=== PATIENT | female | born 1995 | race Caucasian/White ===

== ENCOUNTER 2017-09-25 08:23 | Emergency (ER) | payer OTHER ==
[~2017-09-25] VITALS: Ht 162.6 cm; Wt 66.0 kg
[2017-09-25 08:28] VITALS: BP 125/75; PULSE 100; RESP 16; TEMP 98.5; O2SAT 99
[2017-09-25] MEDS ORDERED: KETOROLAC TROMETHAMINE 60 MG/2 ML (IM) VIAL IM ONE (08:45)
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
[2017-09-25 10:30] VITALS: BP 130/78
== END 2017-09-25 10:31 | disposition home or self-care (01) ==
LOC: PHED 08:23
DX: S00.83XA Contusion of other part of head, initial encounter (principal); T76.21XA Adult sexual abuse, suspected, initial encounter
CPT/HCPCS: 70450; 70486; 72125; 84703; 96372; 99285; J1885; L0150

== ENCOUNTER 2017-12-31 05:32 | Emergency (ER) | payer OTHER ==
[~2017-12-31] VITALS: Ht 162.6 cm; Wt 65.0 kg
[2017-12-31 05:42] VITALS: BP 152/71; PULSE 113; RESP 17; TEMP 98.7; O2SAT 98
[2017-12-31] MEDS ORDERED: diphenhydrAMINE HCL 50 MG/ML VIAL ONE (05:51)
[2017-12-31] MEDS ORDERED: LORazepam 2 MG/ML VIAL ONE ×2 (05:51→14:02)
--- NOTE | 2017-12-31 05:58 | PD ---
HPI Chief Complaint: Psychiatric Symptoms Time Seen by Provider: 05:44 Travel History International Travel<30 days: No Contact w/Intl Traveler<30days: No Traveled to known affect area: No History of Present Illness HPI Patient is a 22-year-old female presenting to the emergency department under a [place]ales act for psychiatric evaluation. Patient allegedly made suicidal statements. Patient has been drinking, she states she has had several shots of alcohol this evening. She currently denies any suicidal or homicidal ideations. She does admit to a previous suicide attempt several years ago. She denies any physical complaints at this time. Patient is literally begging for cigarette. Symptom onset appears gradual, worsening over the course of the evening. Likely exacerbated secondary to alcohol intoxication. PFSH Past Medical History Depression: Yes Immunizations Current: Yes Social History Alcohol Use: Yes (socially) Tobacco Use: Yes Substance Use: No (HX OF) Allergies-Medications (Allergen,Severity, Reaction): Coded Allergies: No Known Allergies (Unverified Adverse Reaction, Unknown, 12/31/17) Reported Meds & Prescriptions Reported Meds & Active Scripts Active No Active Prescriptions or Reported Medications Review of Systems Except as stated in HPI: all other systems reviewed are Neg Psychiatric: Positive: Depression, Suicidal Ideations, Substance Abuse Physical Exam Narrative GENERAL: Well-developed, well-nourished, disheveled female. Presenting in no acute distress. Appears intoxicated. SKIN: Warm and dry. HEAD: Atraumatic. Normocephalic. EYES: Pupils equal and round. No scleral icterus. No injection or drainage. ENT: No nasal bleeding or discharge. Mucous membranes pink and moist. NECK: Trachea midline. No JVD. CARDIOVASCULAR: Regular rate and rhythm. RESPIRATORY: No accessory muscle use. Clear to auscultation. Breath sounds equal bilaterally. GASTROINTESTINAL: Abdomen soft, non-tender, nondistended. Hepatic and splenic margins not palpable. MUSCULOSKELETAL: Extremities without clubbing, cyanosis, or edema. No obvious deformities. NEUROLOGICAL: Awake and alert. No obvious cranial nerve deficits. Motor grossly within normal limits. Five out of 5 muscle strength in the arms and legs. Normal speech. PSYCHIATRIC: Appropriate mood and affect; insight and judgment impaired. Data Data Last Documented VS Vital Signs Date Time Temp Pulse Resp B/P (MAP) Pulse Ox O2 Delivery O2 Flow Rate FiO2 12/31/17 05:42 98.7 113 17 152/71 (98) 98 Orders Orders Diphenhydramine Inj (Benadryl Inj) (12/31/17 05:51) Lorazepam Inj (Ativan Inj) (12/31/17 05:51) Lorazepam Inj (Ativan Inj) (12/31/17 06:00) Diphenhydramine Inj (Benadryl Inj) (12/31/17 06:00) Complete Blood Count With Diff (12/31/17 05:53) Comprehensive Metabolic Panel (12/31/17 05:53) Thyroid Stimulating Hormone (12/31/17 05:53) Urinalysis - C+S If Indicated (12/31/17 05:53) Ed Urine Pregnancytest Poc (12/31/17 05:53) Psych Screen (12/31/17 05:53) Drug Screen, Random Urine (12/31/17 05:53) Alcohol (Ethanol) (12/31/17 05:53) Nicotine 14 Mg Patch.24 Hr (Habitrol 14 (12/31/17 06:15) Iv Access Insert/Monitor (12/31/17 06:57) Ns (Bolus) Inj (12/31/17 07:00) Labs Laboratory Tests Test 12/31/17 06:00 12/31/17 06:02 White Blood Count 6.7 TH/MM3 Red Blood Count 4.78 MIL/MM3 Hemoglobin 15.8 GM/DL Hematocrit 45.2 % Mean Corpuscular Volume 94.5 FL Mean Corpuscular Hemoglobin 33.0 PG Mean Corpuscular Hemoglobin Concent 34.9 % Red Cell Distribution Width 12.5 % Platelet Count 284 TH/MM3 Mean Platelet Volume 8.4 FL Neutrophils (%) (Auto) 58.8 % Lymphocytes (%) (Auto) 35.7 % Monocytes (%) (Auto) 4.8 % Eosinophils (%) (Auto) 0.4 % Basophils (%) (Auto) 0.3 % Neutrophils # (Auto) 4.0 TH/MM3 Lymphocytes # (Auto) 2.4 TH/MM3 Monocytes # (Auto) 0.3 TH/MM3 Eosinophils # (Auto) 0.0 TH/MM3 Basophils # (Auto) 0.0 TH/MM3 CBC Comment DIFF FINAL Differential Comment Blood Urea Nitrogen 9 MG/DL Creatinine 0.67 MG/DL Random Glucose 96 MG/DL Total Protein 8.2 GM/DL Albumin 4.7 GM/DL Calcium Level 8.5 MG/DL Alkaline Phosphatase 58 U/L Aspartate Amino Transf (AST/SGOT) 119 U/L Alanine Aminotransferase (ALT/SGPT) 91 U/L Total Bilirubin 0.5 MG/DL Sodium Level 147 MEQ/L Potassium Level MEQ/L Chloride Level 116 MEQ/L Carbon Dioxide Level 25.0 MEQ/L Anion Gap 6 MEQ/L Estimat Glomerular Filtration Rate 109 ML/MIN Thyroid Stimulating Hormone 3rd Gen 1.400 uIU/ML Ethyl Alcohol Level 331 MG/DL Urine Color LIGHT-YELLOW Urine Turbidity CLEAR Urine pH 5.5 Urine Specific [place] 1.009 Urine Protein NEG mg/dL Urine Glucose (UA) NEG mg/dL Urine Ketones NEG mg/dL Urine Occult Blood NEG Urine Nitrite NEG Urine Bilirubin NEG Urine Urobilinogen LESS THAN 2.0 MG/DL Urine Leukocyte Esterase NEG Urine RBC 1 /hpf Urine WBC 2 /hpf Urine Squamous Epithelial Cells 3 /hpf Microscopic Urinalysis Comment CULT NOT INDICATED Urine Opiates Screen NEG Urine Barbiturates Screen NEG Urine Amphetamines Screen NEG Urine Benzodiazepines Screen NEG Urine Cocaine Screen NEG Urine Cannabinoids Screen POS MDM Medical Decision Making Medical Screen Exam Complete: Yes Emergency Medical Condition: Yes Interpretation(s) Laboratory Tests Test 12/31/17 06:00 12/31/17 06:02 White Blood Count 6.7 TH/MM3 Red Blood Count 4.78 MIL/MM3 Hemoglobin 15.8 GM/DL Hematocrit 45.2 % Mean Corpuscular Volume 94.5 FL Mean Corpuscular Hemoglobin 33.0 PG Mean Corpuscular Hemoglobin Concent 34.9 % Red Cell Distribution Width 12.5 % Platelet Count 284 TH/MM3 Mean Platelet Volume 8.4 FL Neutrophils (%) (Auto) 58.8 % Lymphocytes (%) (Auto) 35.7 % Monocytes (%) (Auto) 4.8 % Eosinophils (%) (Auto) 0.4 % Basophils (%) (Auto) 0.3 % Neutrophils # (Auto) 4.0 TH/MM3 Lymphocytes # (Auto) 2.4 TH/MM3 Monocytes # (Auto) 0.3 TH/MM3 Eosinophils # (Auto) 0.0 TH/MM3 Basophils # (Auto) 0.0 TH/MM3 CBC Comment DIFF FINAL Differential Comment Blood Urea Nitrogen 9 MG/DL Creatinine 0.67 MG/DL Random Glucose 96 MG/DL Total Protein 8.2 GM/DL Albumin 4.7 GM/DL Calcium Level 8.5 MG/DL Alkaline Phosphatase 58 U/L Aspartate Amino Transf (AST/SGOT) 119 U/L Alanine Aminotransferase (ALT/SGPT) 91 U/L Total Bilirubin 0.5 MG/DL Sodium Level 147 MEQ/L Potassium Level MEQ/L Chloride Level 116 MEQ/L Carbon Dioxide Level 25.0 MEQ/L Anion Gap 6 MEQ/L Estimat Glomerular Filtration Rate 109 ML/MIN Thyroid Stimulating Hormone 3rd Gen 1.400 uIU/ML Ethyl Alcohol Level 331 MG/DL Urine Color LIGHT-YELLOW Urine Turbidity CLEAR Urine pH 5.5 Urine Specific [place] 1.009 Urine Protein NEG mg/dL Urine Glucose (UA) NEG mg/dL Urine Ketones NEG mg/dL Urine Occult Blood NEG Urine Nitrite NEG Urine Bilirubin NEG Urine Urobilinogen LESS THAN 2.0 MG/DL Urine Leukocyte Esterase NEG Urine RBC 1 /hpf Urine WBC 2 /hpf Urine Squamous Epithelial Cells 3 /hpf Microscopic Urinalysis Comment CULT NOT INDICATED Urine Opiates Screen NEG Urine Barbiturates Screen NEG Urine Amphetamines Screen NEG Urine Benzodiazepines Screen NEG Urine Cocaine Screen NEG Urine Cannabinoids Screen POS Vital Signs Date Time Temp Pulse Resp B/P (MAP) Pulse Ox O2 Delivery O2 Flow Rate FiO2 12/31/17 05:42 98.7 113 17 152/71 (98) 98 Differential Diagnosis Substance induced mood disorder versus suicidal ideations versus depression versus intoxication versus other Narrative Course Patient is a 22-year-old female that presented to the emergency department under Canales act for psychiatric evaluation. Patient was agitated on arrival, repeatedly requesting to go outside and have a cigarette before her Canales act started. Patient denies any suicidality. She does admit to previous suicide attempt. Mental health screening discussed with the patient. Psychiatric screen ordered. Patient was given 1 mg of Ativan and 25 mg of Benadryl IM 1 dose. IV access established, IV fluids ordered. CBC with no acute findings chemistry the sodium of 147 otherwise unremarkable Urine drug screen is positive for marijuana, alcohol level is 331, urinalysis unremarkable. Patient is medically clear for psychiatric evaluation at this time. Diagnosis Primary Impression: Medical clearance for psychiatric admission Scripts No Active Prescriptions or Reported Meds Condition: Stable Noni Haq Dec 31, 2017 05:57
[2017-12-31] MEDS ORDERED: LORazepam 2 MG/ML VIAL IM ONE ×2 (06:00→15:15)
[2017-12-31] MEDS ORDERED: diphenhydrAMINE HCL 50 MG/ML VIAL IM ONE (06:00)
[2017-12-31] MEDS ORDERED: NICOTINE 14 MG/24 HR PATCH T-DERMAL ONE (06:15)
[2017-12-31 06:18] LABS: BASOPHIL % 0.3 % (0.0-2.0); EOSINOPHIL % 0.4 % (0.0-4.0); HEMATOCRIT 45.2 % (35.0-46.0); HEMOGLOBIN 15.8 GM/DL (11.6-15.3); LYMPH % 35.7 % (9.0-44.0); LYMPHOCYTE # 2.4 TH/MM3 (1.0-4.8); MEAN CELL VOLUME 94.5 FL (80.0-100.0); MEAN CORPUSCULAR HGB CONC 34.9 % (32.0-36.0); MEAN PLATELET VOLUME 8.4 FL (7.0-11.0); MONO % 4.8 % (0.0-8.0); MONOCYTE # 0.3 TH/MM3 (0-0.9); NEUT % 58.8 % (16.0-70.0); PLATELET COUNT 284 TH/MM3 (150-450); RED BLOOD COUNT 4.78 MIL/MM3 (4.00-5.30); RED CELL DISTRIBUTION WIDTH 12.5 % (11.6-17.2); WHITE BLOOD COUNT 6.7 TH/MM3 (4.0-11.0)
[2017-12-31 06:40] LABS: BILIRUBIN, URINE NEG (NEG); BLOOD, URINE NEG (NEG); GLUCOSE,URINE NEG (NEG); KETONE, URINE NEG (NEG); NITRITE,URINE NEG (NEG); PH, URINE 5.5 (5.0-8.5); SQUAMOUS EPITHELIAL CELL URINE 3 /hpf (0-5); URINE COLOR LIGHT-YELLOW (YELLW/STRAW); URINE LEUKOCYTE ESTERASE NEG (NEG)
[2017-12-31 06:48] LABS: ALBUMIN 4.7 GM/DL (3.4-5.0); ALT (GPT) 91 U/L (10-53); AST (GOT) 119 U/L (15-37); BLOOD UREA NITROGEN 9 MG/DL (7-18); CALCIUM 8.5 MG/DL (8.5-10.1); CHLORIDE 116 MEQ/L (98-107); CREATININE 0.67 MG/DL (0.50-1.00); GLOMERULAR FILTRATION RATE 109 ML/MIN (>89); GLUCOSE,RANDOM 96 MG/DL (74-106); SODIUM (NA) 147 MEQ/L (136-145)
[2017-12-31 06:52] LABS: ALKALINE PHOSPHATASE 58 U/L (45-117); TOTAL BILIRUBIN ADULT 0.5 MG/DL (0.2-1.0); TOTAL PROTEIN 8.2 GM/DL (6.4-8.2)
[2017-12-31] MEDS ORDERED: SODIUM CHLOR 0.9% 1000 ML INJ 1,000 ML IV ONE (07:00)
[2017-12-31 09:02] VITALS: BP 100/64; PULSE 76; RESP 17; O2SAT 98
[2017-12-31 12:35] VITALS: BP 109/83; PULSE 87; RESP 22; TEMP 98.4; O2SAT 98
--- NOTE | 2017-12-31 16:33 | PD ---
Data Data Last Documented VS Vital Signs Date Time Temp Pulse Resp B/P (MAP) Pulse Ox O2 Delivery O2 Flow Rate FiO2 12/31/17 12:35 98.4 87 22 109/83 (92) 98 Room Air Orders Orders Diphenhydramine Inj (Benadryl Inj) (12/31/17 05:51) Lorazepam Inj (Ativan Inj) (12/31/17 05:51) Lorazepam Inj (Ativan Inj) (12/31/17 06:00) Diphenhydramine Inj (Benadryl Inj) (12/31/17 06:00) Complete Blood Count With Diff (12/31/17 05:53) Comprehensive Metabolic Panel (12/31/17 05:53) Thyroid Stimulating Hormone (12/31/17 05:53) Urinalysis - C+S If Indicated (12/31/17 05:53) Ed Urine Pregnancytest Poc (12/31/17 05:53) Psych Screen (12/31/17 05:53) Drug Screen, Random Urine (12/31/17 05:53) Alcohol (Ethanol) (12/31/17 05:53) Nicotine 14 Mg Patch.24 Hr (Habitrol 14 (12/31/17 06:15) Iv Access Insert/Monitor (12/31/17 06:57) Sodium Chlor 0.9% 1000 Ml Inj (Ns 1000 M (12/31/17 07:00) Diet Regular Basic (12/31/17 Lunch) Restraints Violent (12/31/17 12:51) Restraints Violent (12/31/17 13:57) Lorazepam Inj (Ativan Inj) (12/31/17 14:02) Lorazepam Inj (Ativan Inj) (12/31/17 15:15) Diet Regular Basic (12/31/17 Dinner) Ed Discharge Order (12/31/17 16:32) Labs Laboratory Tests Test 12/31/17 06:00 12/31/17 06:02 White Blood Count 6.7 TH/MM3 Red Blood Count 4.78 MIL/MM3 Hemoglobin 15.8 GM/DL Hematocrit 45.2 % Mean Corpuscular Volume 94.5 FL Mean Corpuscular Hemoglobin 33.0 PG Mean Corpuscular Hemoglobin Concent 34.9 % Red Cell Distribution Width 12.5 % Platelet Count 284 TH/MM3 Mean Platelet Volume 8.4 FL Neutrophils (%) (Auto) 58.8 % Lymphocytes (%) (Auto) 35.7 % Monocytes (%) (Auto) 4.8 % Eosinophils (%) (Auto) 0.4 % Basophils (%) (Auto) 0.3 % Neutrophils # (Auto) 4.0 TH/MM3 Lymphocytes # (Auto) 2.4 TH/MM3 Monocytes # (Auto) 0.3 TH/MM3 Eosinophils # (Auto) 0.0 TH/MM3 Basophils # (Auto) 0.0 TH/MM3 CBC Comment DIFF FINAL Differential Comment Blood Urea Nitrogen 9 MG/DL Creatinine 0.67 MG/DL Random Glucose 96 MG/DL Total Protein 8.2 GM/DL Albumin 4.7 GM/DL Calcium Level 8.5 MG/DL Alkaline Phosphatase 58 U/L Aspartate Amino Transf (AST/SGOT) 119 U/L Alanine Aminotransferase (ALT/SGPT) 91 U/L Total Bilirubin 0.5 MG/DL Sodium Level 147 MEQ/L Potassium Level MEQ/L Chloride Level 116 MEQ/L Carbon Dioxide Level 25.0 MEQ/L Anion Gap 6 MEQ/L Estimat Glomerular Filtration Rate 109 ML/MIN Thyroid Stimulating Hormone 3rd Gen 1.400 uIU/ML Ethyl Alcohol Level 331 MG/DL Urine Color LIGHT-YELLOW Urine Turbidity CLEAR Urine pH 5.5 Urine Specific [place] 1.009 Urine Protein NEG mg/dL Urine Glucose (UA) NEG mg/dL Urine Ketones NEG mg/dL Urine Occult Blood NEG Urine Nitrite NEG Urine Bilirubin NEG Urine Urobilinogen LESS THAN 2.0 MG/DL Urine Leukocyte Esterase NEG Urine RBC 1 /hpf Urine WBC 2 /hpf Urine Squamous Epithelial Cells 3 /hpf Microscopic Urinalysis Comment CULT NOT INDICATED Urine Opiates Screen NEG Urine Barbiturates Screen NEG Urine Amphetamines Screen NEG Urine Benzodiazepines Screen NEG Urine Cocaine Screen NEG Urine Cannabinoids Screen POS MDM Medical Record Reviewed: Yes Supervised Visit with DILEEP: No Narrative Course Please see previous provider's notes. This patient Canales act has been lifted by psychiatry. The patient expresses remorse for the statements that she made while she was intoxicated. She is now sober, coherent, safe for discharge with no additional medical issues that would warrant further hospitalization. Diagnosis Primary Impression: Medical clearance for psychiatric admission Scripts No Active Prescriptions or Reported Meds Condition: Stable Dalton Chavarria Dec 31, 2017 16:33
--- NOTE | 2017-12-31 16:40 | PD ---
History of Present Illness Chief Complaint: Psychiatric Symptoms Time Seen by Provider: 16:00 Travel History International Travel<30 Days: No Contact w/Intl Traveler<30days: No Known affected area: No Legal Status Legal Status: Canales Act Canales Act Signed By: Hazel Rosa History of Present Illness: History of Present Illness HPI Patient is a 22-year-old female with no psychiatric history presenting to the emergency department under a Canales act for psychiatric evaluation. The Canales act report alleges that the patient made suicidal statements while intoxicated. The patient admits to having had several shots of alcohol and later not remembering what had happened or how she got here to the hospital. Her blood alcohol level on arrival was 331. Toxicology was positive for cannabinoids. Electronic medical record is reviewed. No previous contact with [facility] psychiatry Department. Patient arrived to [facility] and she was still intoxicated. She was threatening to leave, threatening to punch staff and demanding to have a cigarette. The patient required locked seclusion in order to prevent harm to staff. She also required ETO of Ativan as she was banging on the door and continuing to threaten to harm staff. She then fell asleep. The patient is seen for this evaluation. She is clinically sober. Ambulating well without any gait disturbance. Her speech is clear, logical, goal- directed. She is apologetic for her behavior and remorseful as well. She admits to being intoxicated and not remembering what happened or what she said while she was intoxicated. She denies any suicidal or homicidal ideation, intent or plan. She is future oriented. She states that she has many good things happening in her life quitting her job as well as getting a new truck soon. The patient denies any psychiatric history. She does not present any evidence of any unstable mental illness. No psychosis and no michael. PFSH Past Medical History Depression: Yes Immunizations Current: Yes Psychiatric History Psychiatric History Hx Psychiatric Treatment: Denies any. She does report one previous Canales act while she was under the influence of alcohol as well. History of Inpatient Treatment: No Guns or firearms in home: No Social History Single female who lives with her boyfriend. She is employed at a local restaurant as a server programmer. Hx Alcohol Use: Yes (socially) Hx Tobacco Use: Yes Hx Substance Use: No (HX OF) Substance Use Type: Alcohol, Marijuana Other Substances Used: reports that she drinks once a week on her day off. Hx of Substance Use Treatment: No Family Psychiatric History Negative Allergies-Medications (Allergen,Severity, Reaction): Coded Allergies: No Known Allergies (Unverified Allergy, Unknown, 12/31/17) Reported Meds & Prescriptions Reported Meds & Active Scripts Active No Active Prescriptions or Reported Medications Review of Systems Psychiatric: DENIES: Anxiety, Confusion, Mood changes, Depression, Hallucinations, Agitation, Suicidal Ideation, Homicidal Ideation, Delusions Except as stated in HPI: all other systems reviewed are Neg Mental Status Examination Appearance: Appropriate (in hospital gown) Consciousness: Alert Orientation: x4 Motor Activity: Normal gait Speech: Unremarkable Language: Adequate Fund of Knowledge: Adequate Attention and Concentration: Adequate Memory: Unremarkable Mood: Appropriate Affect: Appropriate Thought Process & Associations: Intact, Logical, Goal directed Thought Content: Appropriate Hallucination Type: None Delusion Type: None Suicidal Ideation: No Suicidal Plan: No Suicidal Intention: No Homicidal Ideation: No Homicidal Plan: No Homicidal Intention: No Insight: Fair Judgment: Adequate MDM Medical Decision Making Medical Record Reviewed: Yes Assessment/Plan 22-year-old female with no previous psychiatric history who in context of alcohol intoxication was placed under a Canales act for allegedly having made suicidal statements. The patient was initially agitated as a result of her alcohol intoxication. Once the patient was clinically sober she was calm, cooperative, denies any suicidal or homicidal ideation, intent or plan. There is no evidence of any unstable mental illness. The patient does not present a risk to self or others. This is clearly behavior related to her acute alcohol intoxication. She does not meet criteria for Canales act. The Canales act is lifted. She psychiatric clear for discharge. Orders Orders Diphenhydramine Inj (Benadryl Inj) (12/31/17 05:51) Lorazepam Inj (Ativan Inj) (12/31/17 05:51) Lorazepam Inj (Ativan Inj) (12/31/17 06:00) Diphenhydramine Inj (Benadryl Inj) (12/31/17 06:00) Complete Blood Count With Diff (12/31/17 05:53) Comprehensive Metabolic Panel (12/31/17 05:53) Thyroid Stimulating Hormone (12/31/17 05:53) Urinalysis - C+S If Indicated (12/31/17 05:53) Ed Urine Pregnancytest Poc (12/31/17 05:53) Psych Screen (12/31/17 05:53) Drug Screen, Random Urine (12/31/17 05:53) Alcohol (Ethanol) (12/31/17 05:53) Nicotine 14 Mg Patch.24 Hr (Habitrol 14 (12/31/17 06:15) Iv Access Insert/Monitor (12/31/17 06:57) Sodium Chlor 0.9% 1000 Ml Inj (Ns 1000 M (12/31/17 07:00) Diet Regular Basic (12/31/17 Lunch) Restraints Violent (12/31/17 12:51) Restraints Violent (12/31/17 13:57) Lorazepam Inj (Ativan Inj) (12/31/17 14:02) Lorazepam Inj (Ativan Inj) (12/31/17 15:15) Diet Regular Basic (12/31/17 Dinner) Results Vital Signs Date Time Temp Pulse Resp B/P (MAP) Pulse Ox O2 Delivery O2 Flow Rate FiO2 12/31/17 12:35 98.4 87 22 109/83 (92) 98 Room Air 12/31/17 09:02 76 17 100/64 (76) 98 Room Air 12/31/17 05:42 98.7 113 17 152/71 (98) 98 Laboratory Tests Test 12/31/17 06:00 12/31/17 06:02 White Blood Count 6.7 Red Blood Count 4.78 Hemoglobin 15.8 Hematocrit 45.2 Mean Corpuscular Volume 94.5 Mean Corpuscular Hemoglobin 33.0 Mean Corpuscular Hemoglobin Concent 34.9 Red Cell Distribution Width 12.5 Platelet Count 284 Mean Platelet Volume 8.4 Neutrophils (%) (Auto) 58.8 Lymphocytes (%) (Auto) 35.7 Monocytes (%) (Auto) 4.8 Eosinophils (%) (Auto) 0.4 Basophils (%) (Auto) 0.3 Neutrophils # (Auto) 4.0 Lymphocytes # (Auto) 2.4 Monocytes # (Auto) 0.3 Eosinophils # (Auto) 0.0 Basophils # (Auto) 0.0 CBC Comment DIFF FINAL Differential Comment Blood Urea Nitrogen 9 Creatinine 0.67 Random Glucose 96 Total Protein 8.2 Albumin 4.7 Calcium Level 8.5 Alkaline Phosphatase 58 Aspartate Amino Transf (AST/SGOT) 119 Alanine Aminotransferase (ALT/SGPT) 91 Total Bilirubin 0.5 Sodium Level 147 Potassium Level Chloride Level 116 Carbon Dioxide Level 25.0 Anion Gap 6 Estimat Glomerular Filtration Rate 109 Thyroid Stimulating Hormone 3rd Gen 1.400 Ethyl Alcohol Level 331 Urine Color LIGHT-YELLOW Urine Turbidity CLEAR Urine pH 5.5 Urine Specific [place] 1.009 Urine Protein NEG Urine Glucose (UA) NEG Urine Ketones NEG Urine Occult Blood NEG Urine Nitrite NEG Urine Bilirubin NEG Urine Urobilinogen LESS THAN 2.0 Urine Leukocyte Esterase NEG Urine RBC 1 Urine WBC 2 Urine Squamous Epithelial Cells 3 Microscopic Urinalysis Comment CULT NOT INDICATED Urine Opiates Screen NEG Urine Barbiturates Screen NEG Urine Amphetamines Screen NEG Urine Benzodiazepines Screen NEG Urine Cocaine Screen NEG Urine Cannabinoids Screen POS Diagnosis Primary Impression: Medical clearance for psychiatric admission Additional Impression: Alcohol abuse Psychiatrically Cleared: Yes Med/ Other Pt Specific Info: No Meds Exist/No RX given Prescriptions No Active Prescriptions or Reported Meds Disposition: 01 DISCHARGE HOME Condition: Stable Problem Qualifiers Zenaida Fonseca Dec 31, 2017 16:40
== END 2017-12-31 16:48 | disposition home or self-care (01) ==
LOC: NEPD 05:32 → NEPJ 16:48
DX: F10.129 Alcohol abuse with intoxication, unspecified (principal); Y90.8 Blood alcohol level of 240 mg/100 ml or more; F32.9 Major depressive disorder, single episode, unspecified; F12.90 Cannabis use, unspecified, uncomplicated; Z72.0 Tobacco use
CPT/HCPCS: 80053; 80307; 81001; 84443; 84703; 85025; 96360; 96372; 99284; J1200; J2060; J7030